=== PATIENT | female | born 1985 | race Hispanic/Latino ===

== ENCOUNTER 2018-07-16 17:40 | Inpatient (IN) | payer OTHER, SELFPAY ==
[~2018-07-16 17:40] MED LIST: BUTORPHANOL 1 MG/ML INJ IV PRN; CARBOPROST TROME 250 MCG/ML IM PRN; METHYLERGONOVINE 0.2MG/ML AMP IM PRN; PROMETHAZINE 25 MG/ML VIAL IV PRN; Ringers Lactate 1,000 ML IV PRN
[2018-07-16] MEDS ORDERED: Ringers Lactate 1,000 ML IV SCH (18:00)
[2018-07-16] MEDS ORDERED: miSOPROStol 100 MCG TAB PO SCH (18:00)
[2018-07-16] MEDS ORDERED: OXYTOCIN/LR 20 UNIT/1,000 ML BAG IV SCH (18:00)
[2018-07-16 18:09] LABS: RPR Titer ND
[2018-07-16 18:13] LABS: Absolute Lymphocytes (CBC) 2.6 K/uL (0.7-4.9); Absolute Monocytes 0.8 K/uL (0.1-1.3); Absolute Neutrophil 9.1 K/uL (1.8-8.0); Basophils % 0.3 % (0-1.3); Eosinophils % 0.8 % (0-4.4); Hematocrit 36.9 % (36.0-45.0); Lymphocytes % 20.6 % (15.3-44.8); MCH 31.4 pg (27.0-35.0); MCV 92.5 fL (80-100); MPV 9.2 fL (7.6-11.3); Monocytes % 6.3 % (3.3-12.3); RBC Red Blood Cell Count 3.98 M/uL (3.86-4.86)
[2018-07-16 18:14] LABS: Urine Appearance CLEAR; Urine Bilirubin NEGATIVE (NEG); Urine Blood NEGATIVE (NEG); Urine Color YELLOW; Urine Glucose NEGATIVE (NEG); Urine Protein NEGATIVE (NEG); Urine Specific Gravity 1.015 (1.005-1.030); Urine Urobilinogen 0.2 mg/dL (0.2-1.0)
[2018-07-16 18:26] LABS: Urine Microscopic Reflex NO UMIC
[2018-07-16 18:38] VITALS: BMI 30.3
--- NOTE | 2018-07-16 21:34 | PREOPHP ---
Date of Admission: 07/16/2018 This was a 33-year-old female, 2, para 1, 39 weeks 4 days by dates, 39 weeks 6 days by ultras ound. Cytotec administration for cervical ripening and labor induction. Full discussion in the offi ce about pros and cons of Cytotec and risks and side effects. FHTs normal, reactive. The patient's vital signs are all normal. We will give her 25 mcg of Cytotec p.o. q.4 hours for up to 6 doses, pro bably after 3 she should be in good labor and then we can start oxytocin. Ambien 10 mg p.o. h.s. if the patient wishes it and of course pain medicines if she requests. The patient says she is going to be going natural. We will see of course if she changes her mind. Full labor and delivery talk. JUSTINE/SIMEON Voice ID: [id number]
[2018-07-17 01:54] LABS: RPR (Rapid Plasma Reagin) NON-REACT (NON-REACT)
[2018-07-17] MEDS ORDERED: LIDOCAINE 1% MPF 30 ML VIAL SQ ONE (09:25)
[2018-07-17] MEDS ORDERED: METHYLERGONOVINE 0.2MG/ML AMP IM PRN (09:30)
[2018-07-17] MEDS ORDERED: IBUPROFEN 200 MG TAB PO PRN (10:45)
[2018-07-17] MEDS ORDERED: ACETAMINOPHEN 500 MG TAB PO PRN (10:45)
[2018-07-17] MEDS ORDERED: DIPHENHYDRAMINE 25 MG TAB/CAP PO PRN (10:45)
[2018-07-17] MEDS ORDERED: Oxycodone HCl/Acetaminophen 1 TAB TAB PO PRN ×2 (10:45)
[2018-07-17] MEDS ORDERED: BISACODYL 10 MG RECTAL SUPP RECT PRN (10:45)
[2018-07-17] MEDS ORDERED: DOCUSATE NA/SENNA CONC 1 TAB PO PRN (10:45)
[2018-07-17] MEDS ORDERED: OXYTOCIN/LR 20 UNIT/1,000 ML BAG IV SCH (11:00)
--- NOTE | 2018-07-17 11:56 | PN ---
The patient is in active labor at this point. She had 3 Cytotec doses, now she is on 2 milliunits of Pitocin, jian regularly. FHTs very reactive, look good. An hour ago, she was 2 to 2.5 cm, n ow she is 3.5, 60% effaced, vertex, well applied, rupture of membranes, clear fluid. Labor talk give n. I anticipate more rapid progress. The patient states that she might take an IV analgesics, but s he wants to avoid an epidural. She knows that is completely up to her. JUSTINE/SIMEON Voice ID: [id number] Report ID: [id number]
--- NOTE | 2018-07-17 12:05 | OP ---
Surgeon: Kimani Mckay MD Ms. Lopez is a 33-year-old 2, para 1, 39 weeks 4 days, had Cytotec administration x3 then oxy tocin at approximately 3.5 cm. Rupture of membranes, clear fluid. The patient went rapidly thereaft er. Second stage about 15 to 20 minutes. Spontaneous vaginal delivery of an 8 pounds 5 ounce male i nfant. Mild shoulder dystocia. Flexion of the legs and suprapubic pressure effected delivery. Apga rs 9 and 9. Midline second degree laceration, repaired with 2-0 chromic under local infiltration. S chultze delivery. The placenta was inspected and noted to be intact and normal. Moderate hypotonus. Methergine IM 0.2 mg as well as IV drip Pitocin and massage. Estimated blood loss 550-600 cc. The patient tolerated all procedures well. Rh positive, immune to Rubella. Negative beta-strep screen. Final Diagnoses: Term uterine , 39 weeks 4 days. Cytotec administration 39 weeks 5 days. Vaginal delivery. Moderate hypotonus. Mild shoulder dystocia. JUSTINE/SIMEON Voice ID: [id number] Report ID: [id number]
--- NOTE | 2018-07-17 12:50 | PN ---
The patient is having regular contractions. Baby looks good. She is still using Lamaze breathing te chniques. The patient is now 4.5 cm, but the baby is straight occiput posterior. Pelvic rocks. Dis cussed with the patient. She will begin as now once rotation occurs, I think will get more rapid pro gression. JUSTINE/SIMEON Voice ID: [id number] Report ID: [id number]
[2018-07-17] MEDS: METHYLERGONOVINE 0.2 MG TAB PO PRN ×3 (14:00→22:09)
[2018-07-18] MEDS: METHYLERGONOVINE 0.2 MG TAB PO PRN (02:06)
[2018-07-18 12:41] VITALS: BP 111/78; TEMP 98.2
--- NOTE | 2018-07-18 23:28 | DS ---
Hospital Course: A 33-year-old 2, para 1, 39 weeks, 4 days, had Cytotec x3, then Pitocin aug mentation. Delivered at 39 weeks and 5 days an 8 pound 5 ounce male , short second stage. Apg ars 9 and 9. Local infiltration for repair second-degree laceration. Delivery of the placenta, whic h was inspected and noted to be intact and normal. Moderate uterine hypotonus, 0.2 mg of Methergine IM as well as IV drip. Pitocin and massage. Estimated blood loss 550 cc. Rh positive. Immune to R ubella. Negative beta strep screen. afebrile. Ambulating and voiding. Lochia is normal . Will be dismissed later this morning to report back to my office in 6 weeks for followup. To repo rt any temperature elevation of 100 degrees or greater, severe pain, heavy bleeding, or any other typ e of abnormalities. Dismissed with tramadol for analgesia, although she may elect to take Motrin ins tead. She has had her Tdap administration during the . Final Diagnoses: Term intrauterine 39 weeks and 4 days, Cytotec cervical ripening, vaginal delivery 39 weeks 5 days, moderate uterine hypotonus, mild shoulder dystocia. JUSTINE/SIMEON Voice ID: [id number] Report ID: [id number]
[2018-07-19 14:14] LABS: HBsAG Nonreactive (Nonreactive)
== END 2018-07-18 12:50 | disposition home or self-care (01) | DRG 775 ==
LOC: 2ND-WC 17:40
PROVIDERS: ADMIT Specialist; ATTEND Specialist
PROC: 3E0P7VZ Introduction of Hormone into Female Reproductive, Via Natural or Artificial Opening (ICD-10-PCS; 2018-07-16)
PROC: 3E033VJ Introduction of Other Hormone into Peripheral Vein, Percutaneous Approach (ICD-10-PCS; 2018-07-16)
PROC: 10907ZC Drainage of Amniotic Fluid, Therapeutic from Products of Conception, Via Natural or Artificial Opening (ICD-10-PCS; principal; 2018-07-17)
PROC: 10E0XZZ Delivery of Products of Conception, External Approach (ICD-10-PCS; 2018-07-17)
PROC: 0KQM0ZZ Repair Perineum Muscle, Open Approach (ICD-10-PCS; 2018-07-17)
DX: O70.1 Second degree perineal laceration during delivery (principal); Z37.0 Single live birth; O66.0 Obstructed labor due to shoulder dystocia; O62.2 Other uterine inertia; Z3A.39 39 weeks gestation of pregnancy; O64.0XX0 Obstructed labor due to incomplete rotation of fetal head, not applicable or unspecified
CPT/HCPCS: 36415; 81003; 85025; 86592; 86901; 87340; J0595; J2210; J2590